=== PATIENT | female | born 1995 | race Caucasian/White ===

== ENCOUNTER 2017-08-08 08:34 | Inpatient (IN) ==
[2017-08-08] MEDS ORDERED: CARBOPROST 250 MCG/ML INJECTION IM PRN (16:20)
[2017-08-08] MEDS ORDERED: METHYLERGONOVINE 0.2 MG/ML INJECTION IM PRN (16:20)
[2017-08-08] MEDS ORDERED: ACETAMINOPHEN 500 MG TABLET PO PRN (16:20)
[2017-08-08] MEDS ORDERED: LIDOCAINE 1% (10mg/ml) 2mL INJ PF SDV ID PRN (16:20)
[2017-08-08] MEDS ORDERED: CALCIUM CARBONATE Chewable 500mg TABLET PO PRN (16:20)
[2017-08-08] MEDS ORDERED: MAG-AL + SIM ORAL LIQUID 30ml PO PRN (16:20)
[2017-08-08] MEDS ORDERED: SALINE FLUSH 10ml SYRINGE IV PRN (16:23)
[2017-08-08] MEDS ORDERED: ZOLPIDEM 5 MG TABLET PO PRN (16:23)
[2017-08-08] MEDS ORDERED: HYDROCODONE/APAP 5mg/325mg TABLET PO PRN (16:23)
--- OUTSIDE RECORDS SUMMARY | 2017-08-08 17:03 | External Medical Summary | Continuity of Care Document ---
:1995 Author Organization [facility] Address [address] [place], [place] [id number] Phone Care Team Providers Name Role Phone Vivian Bledsoe MD Unavailable Unavailable Allergies, Adverse Reactions, Alerts Substance Reaction Severity Status amoxicillin Hives Unknown Active Medications Medication Instructions Dosage Effective Dates Status Comments (start - stop) Gummy 400 - Active mcg-35 mg-25 mg-5 mg chewable tablet ProAir HFA 90 inhale 2 puff by - Active mcg/actuation aerosol inhalation route inhaler every 4 - 6 hours as needed Problems Condition Effective Dates (start - stop) Clinical Status Supervision of other high risk - pregnancies, third trimester Preg care for patient w recurrent preg - loss, third trimester 33 weeks gestation of - Supervision of other high risk - pregnancies, first trimester Preg care for patient w recurrent preg - loss, first trimester 8 weeks gestation of - Supervision of other high risk - pregnancies, first trimester 13 weeks gestation of - Supervision of other high risk - pregnancies, second trimester Maternal care for excess growth, - second tri, unsp 19 weeks gestation of - Supervision of other high risk - pregnancies, second trimester 27 weeks gestation of - Supervision of other high risk - pregnancies, second trimester 23 weeks gestation of - Supervision of other high risk - pregnancies, second trimester Preg care for patient w recur preg - loss, second trimester 19 weeks gestation of - Supervision of other high risk - pregnancies, second trimester Maternal care for excess growth, - second tri, unsp 17 weeks gestation of - Supervision of other high risk - pregnancies, third trimester 30 weeks gestation of - Supervision of other high risk - pregnancies, third trimester Preg care for patient w recurrent preg - loss, third trimester Oth related conditions, - third trimester Maternal care for excess growth, - third trimester, unsp Supervision of other high risk - pregnancies, third trimester Encounter For Screening For - Streptococcus B 35 weeks gestation of - Oth related conditions, - third trimester 32 weeks gestation of - Asthma Active Procedures Procedure Date Ultrasnd preg uterus, flwup/repeat Results Test Name Date and Time Measure Units Reference Range Abnormal Flag Comments Unknown Advance Directives Directive Yes / No Effective Date File Name Unknown Encounters Encounter Practice Location Reason(s) Diagnoses Date Provider Care Team Description For Visit Members Yandel Garza Supervision of Mercado Referring In Womens other high risk 3-201 Malissa. Provider: Health [place], pregnancies, 7 700 Malissa Mercado [address] [facility], 700 1522, [facility], For Dr, [facility] Dr DENT, Screening For 120, Joshua 120, [id number], Streptococcus B35 Greg Garza, [place] weeks gestation FILIPE DENT, tel: of [phone]. , [place]. tel: tel: [phone] Yandel Garza Supervision of Sobbing In Womens other high risk 8-201 Che[place]. Health [place], pregnancies, 7 700 [address] third Medical 1522, trimesterPreg [facility], care for patient FILIPE Shafer, w recurrent preg [id number], loss, third 120, [place] Leonardo Garza, tel: related [place], conditions, third [address], trimesterMaternal [place]. care for excess tel: growth, [phone] third trimester, unsp Associates Greg Supervision of Sep-1 [facility] In Womens Ultrasound other high risk 8-201 Malissa. Health PA, pregnancies, 7 700 PO [address] third Medical 1522, trimesterPreg [facility], care for patient Joshua Hagan, w recurrent preg 120, , loss, third [place], [email or web address] weeks [place], tel: gestation of [phone] , [place]. tel: [phone] Yandel Garza Oth Sep-1 [facility] In Womens related 1-201 Malissa. Health PA, conditions, third 7 700 PO Box weeks Medical 1522, gestation of [facility], Joshua Hagan, 120, , [place], [place], tel:[phone] , [place]. tel: [phone] Yandel Garza Supervision of May- Merc[facility] Referring In Womens other high risk 1-201 Malissa. Provider: Health PA, pregnancies, 7 700 Malisas Mercado PO Box third [email or web address] Medical K, 700 1522, weeks gestation [facility], of [place], 120, Joshua 120, , [place], [place], [place], tel: [phone]. , [place]. tel: tel: [phone] Yandel Garza Supervision of May- [place] In Womens other high risk 0-201 Malissa. Health [place], pregnancies, 7 700 PO Box second Medical 1522, [email or web address] weeks [facility], gestation of Joshua Hagan, 120, , [place], tel: [phone] , [place]. tel: [phone] Yandel Garza Supervision of Apr- [place] In Womens other high risk 3-201 Malissa. Health [place], pregnancies, 7 700 PO Box second Medical 1522, [email or web address] weeks [place], gestation of Joshua Hagan, 120, , [place], tel:+ [phone] , [place]. tel: [phone] Associates Greg Supervision of Mir-1 [facility] In Womens other high risk 2-201 Malissa. Health PA, pregnancies, 7 700 PO Box second Medical 1522, trimesterPreg [facility], care for patient Joshua Hagan, w recur preg 120, [id number], loss, second [place], [place] [email or web address] weeks [place], tel:+[phone] gestation of [phone] , [place]. tel:[phone] Yandel Garza Supervision of Mir-1 [facility] In Womens Ultrasound other high risk 2-201 Malissa. Health PA, pregnancies, 7 700 PO Box second Medical 1522, trimesterMaternal [facility], care for excess Joshua Hagan, growth, 120, [id number], second tri, [place], [place] unsp19 weeks [place], tel:[phone] gestation of [phone] , [place]. tel: [phone] Yandel Garza Supervision of May-3 [facility] In Womens other high risk 0-201 Malissa. Health PA, pregnancies, 7 700 PO Box second Medical 1522, trimesterMaternal [facility], care for excess Joshua Hagan, growth, 120, [id number], second tri, [place], [place] unsp17 weeks [place], tel:+316 gestation of [phone] , [place]. tel: [phone] Yandel Garza Supervision of May-0 [facility] In Womens other high risk 3-201 Malissa. Health PA, pregnancies, 7 700 PO Box first [email or web address] Medical 1522, weeks gestation [facility] [place], of Joshua Hagan, 120, [id number], [place], [place], tel:[phone] , [place]. tel:[phone] Yandel Garza Supervision of Mar-2 [facility] In Womens other high risk 7-201 Malissa. Health PA, pregnancies, 7 700 PO Box first Medical 1522, trimesterPreg [facility], care for patient Joshua Hagan, w recurrent preg 120, [id number], loss, first [place], [place] trimester8 weeks [place], tel:[phone] gestation of [phone] , [place]. tel: [phone] Family History Family Member Diagnosis Age At Onset No family history of Pulmonary Embolism No family history of Venous Thrombosis Maternal Grandfather Lung Disease Mother Thyroid Disorder Paternal Grandmother Breast Cancer Paternal Grandfather Diabetes Paternal Grandmother Thyroid Disorder Immunizations Vaccine Date Status Comments Influenza, injectable, completed Source: New Immunization Record quadrivalent, preservative free, 3 yrs or older Tdap completed Source: New Immunization Record Tdap completed Source: Other Provider Payers Payer name Insurance type Covered democrat ID Authorization(s) Aetna CI [id number] Aetna CI [id number] Aetna CI [id number] Social History Type Description Quantity Date Captured Unknown Vital Signs Date / Height Weight BMI Pulse Blood Temperature Respiratory Body Head BMI Time: Rate Pressure Rate Surface Circumference percentile Area Unknown Chief Complaint And Reason For Visit Unknown Chief Complaint And Reason For Visit Reason For Referral Reason For Referral Unknown Plan Of Care Date Type Action Status Appointment Sade Laguerre BOOKED Future Order: Radiology Order Ultrasound OB Follow-up ([id number]) Ordered Future Order: Radiology Order Complete OB Ultrasound > 14 Ordered Weeks ([id number]) Date Type Problem Goal Intervention Status Start Date Unknown. History Of Present Illness Encounter Date Complaint History Of Present Illness This patient has no known history of present illness Functional Status Encounter Date Functional Assessment Cognitive Assessment Unknown Medications Administered Medication Instructions Dosage Effective Dates (start - stop) Status Comments Drug Treatment Unknown Instructions Date Instruction Additional Information labor signs group B strep screening gestational glucose lab screening anticipated course of care HIV and other routine tests risk factors identified by history nutrition and weight gain counseling, special diet toxoplasmosis precautions (cats / raw meat) exercise indications for ultrasound influenza vaccine environmental / work hazards travel tobacco (ask, advise, assess, assist and arrange) alcohol illicit / recreational drugs use of any medications (including supplements, vitamins, herbs, OTC drugs) smoking counseling domestic violence seat belt use genetic testing new ob handbook Zika virus assessment & precautions 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
--- OUTSIDE RECORDS SUMMARY | 2017-08-08 17:04 | External Medical Summary | Continuity of Care Document ---
:1994 Author Organization [facility] Address [address] [place], [place] [address] Phone Care Team Providers Name Role Phone [...] Effective Dates (start - stop) Clinical Status Oth related conditions, - third trimester 32 weeks gestation of - Supervision of other [...] for excess growth, - third trimester, unsp Asthma Active Procedures Procedure Date OB Visit No Charge Urine Culture Cult, bactr, ident isolate, urine Results Test Name Date and Time Measure Units Reference Range Abnormal Flag Comments Panel Description: Bacteria identified in Urine by Culture CULTURE, URINE, 15:53:00 SEE NOTE CULTURE, URINE, ROUTINE ROUTINE MICRO NUMBER: [id number] TEST STATUS: FINAL SPECIMEN SOURCE: URINE SPECIMEN QUALITY: ADEQUATE RESULT: Three or more organisms present, each greater than 10,000 cu/mL. May represent normal florentin contamination from external genitalia. No further testing is required.REPORT COMMENT:RFASTING:UNKNOWNTest performed at [facility] [id number] [place] [address]Jiblnouf: JUAN MANUEL BARRIOS DO,MPH Advance Directives Directive Yes / No Effective Date File Name Unknown Encounters Encounter Practice Location Reason(s) Diagnoses Date Provider Care Team Description For Visit Members Yandel Garza Supervision of Sobbing In Womens other high risk 8-201 [facility], pregnancies, 7 700 [address] third Medical 1522, trimesterPreg [facility], care for patient Soni, FILIPE, w recurrent preg [id number], loss, third 120, [place] trimesterOth [place], tel:[phone] related [place], [id number] conditions, third [address], trimesterMaternal [place]. care for excess tel: growth, [id number] third trimester, unsp Yandel Garza Supervision of Sep-1 [facility] In Womens Ultrasound other high risk 8-201 Malissa. Health PA, pregnancies, 7 700 PO Box third Medical 1522, trimesterPreg [facility], care for patient Joshua Hagan, w recurrent preg 120, [id number], loss, third Garza, [email or web address] weeks [place], tel:+[phone] gestation of , [place]. tel: [phone] Yandel Garza Oth Sep-1 [facility] In Womens related 1-201 Malissa. Health PA, conditions, third 7 700 PO Box [email or web address] weeks Medical 1522, gestation of [facility], Joshua Hagan, 120, , [place], [place], tel:[phone] , [place]. tel: [phone] Yandel Garza Supervision of May- Mecrado Referring In Womens other high risk 1-201 Malissa. Provider: Health PA, pregnancies, 7 700 Malissa Mercado PO Box third [email or web address] Medical K, 700 1522, weeks gestation Center [facility], of [place], 120, Joshua 120, , [place], [place], [place], tel:+ [phone]. , [place]. tel:+ tel: [phone] Yandel Garza Supervision of Aug- [facility] In Womens other high risk 0-201 Malissa. Health PA, pregnancies, 7 700 PO Box second Medical 1522, [email or web address] weeks [facility], gestation of Joshua Hagan, 120, , [place], [place], tel:[phone] , [place]. tel: [phone] Yandel Garza Supervision of Apr- [facility] In Womens other high risk 3-201 Malissa. Health PA, pregnancies, 7 700 PO Box second Medical 1522, [email or web address] weeks [facility], gestation of Joshua Hagan, 120, , [place], [place], tel:[phone] , [place]. tel: [phone] Yandel Garza Supervision of Mir-1 [facility] In Womens other high risk 2-201 Malissa. Health PA, pregnancies, 7 700 PO Box second Medical 1522, trimesterPreg [facility], care for patient Joshua Hagan, w recur preg 120, [id number], loss, second [place], [place] [email or web address] weeks [place], tel:+[phone] gestation of [phone] , [place]. tel: [phone] Yandel Garza Supervision of Mir-1 [facility] In Womens Ultrasound other high risk 2-201 Malissa. Health PA, pregnancies, 7 700 PO Box second Medical 1522, trimesterMaternal [facility], care for excess Joshua Hagan, growth, 120, [id number], second tri, [place], [place] unsp19 weeks [place], tel:[phone] gestation of [phone] , [place]. tel: [phone] Yandel Garza Supervision of May-3 [facility] In Womens other high risk 0-201 Malissa. Health PA, pregnancies, 7 700 PO Box second Medical 1522, trimesterMaternal [facility], care for excess Joshua Hagan, growth, 120, [id number], second tri, [place], [place] unsp17 weeks [place], tel:+-[phone] gestation of [id number] , [place]. tel: [phone] Yandel Garza Supervision of May-0 [facility] In Womens other high risk 3-201 Malissa. Health PA, pregnancies, 7 700 PO Box first [email or web address] Medical 1522, weeks gestation [facility], of Joshua Hagan, 120, [id number], [place], [place], tel:[phone] , [place]. tel: [phone] Yandel Garza Supervision of Mar-2 [facility] In Womens other high risk 7-201 Malissa. Health PA, pregnancies, 7 700 PO Box first Medical 1522, trimesterPreg [facility], care for patient Joshua Hagan, w recurrent preg 120, [id number], loss, first [place], [place] trimester8 weeks [place], tel:[phone] gestation of [phone] , [place]. tel: [phone] Family History Family Member Diagnosis Age At Onset No family history of Pulmonary Embolism No family history of Venous Thrombosis Maternal Grandfather Lung Disease Mother Thyroid Disorder Paternal Grandmother Breast Cancer Paternal Grandfather Diabetes Paternal Grandmother Thyroid Disorder Immunizations Vaccine Date Status Comments Tdap completed Source: New Immunization Record Tdap completed Source: Other Provider Payers Payer name Insurance type Covered green party ID Authorization(s) Aetna CI [id number] Aetna CI [id number] Social History Type Description Quantity Date Captured Alcohol Use Details No Caffeine Use Details Unknown Tobacco Use Status Unknown Smoking Status Never smoker Vital Signs Date / Height Weight BMI Pulse Blood Temperature Respiratory Body Head BMI Time: Rate Pressure Rate Surface Circumference percentile Area 232.20 39.8 lbs 5 mm[Hg] 3:38 kg/m PM eter (2) Chief Complaint And Reason For Visit Unknown Chief Complaint And Reason For Visit Reason For Referral Reason For Referral Unknown Plan Of Care Date Type Action Status Appointment Sade Laguerre BOOKED Future Order: Radiology Order Complete OB Ultrasound > 14 Ordered Weeks ([id number]) Future Order: Radiology Order Ultrasound OB Follow-up ([id number]) Ordered Date Type Problem Goal Intervention Status Start Date Unknown. History Of Present Illness Encounter Date Complaint History Of Present Illness This patient has no known history of present illness Functional Status Encounter Date Functional Assessment Cognitive Assessment Unknown Medications Administered Medication Instructions Dosage Effective Dates (start - stop) Status Comments Drug Treatment Unknown Instructions Date Instruction Additional Information gestational glucose lab screening anticipated course of [...]
--- OUTSIDE RECORDS SUMMARY | 2017-08-08 17:04 | External Medical Summary | Continuity of Care Document ---
:1994 Author Organization [facility] Address [address] [place], [place] [address] Phone Care Team Providers Name Role Phone Vivian Bldesoe MD Unavailable Unavailable Allergies, Adverse Reactions, Alerts [...] other high risk - pregnancies, third trimester 36 weeks gestation of - Supervision of other [...] other high risk - pregnancies, third trimester 38 weeks gestation of - Supervision of other [...] other high risk - pregnancies, third trimester 37 weeks gestation of - Supervision of other high risk - pregnancies, third trimester Preg care for patient w recurrent preg - loss, third trimester 39 weeks gestation of - Supervision of other high risk - pregnancies, third trimester Encounter For Screening For - Streptococcus B 35 weeks gestation of - Oth related conditions, - third trimester 32 weeks gestation of - Asthma Active Procedures Procedure Date OB Visit No Charge Results Test Name Date and Time Measure Units Reference Range Abnormal Flag Comments Unknown Advance Directives Directive Yes / No Effective Date File Name Unknown Encounters Encounter Practice Location Reason(s) Diagnoses Date Provider Care Team Description For Visit Members Yandel Garza Supervision of [facility] In Womens other high risk 0-201 [facility], pregnancies, 7 700 [address] third Medical 1522, trimesterPreg [facility], care for patient Joshua Hagan, w recurrent preg 120, [id number], loss, third [place], [place] [email or web address] weeks [place], tel:[phone] gestation of [phone] , [place]. tel: [phone] Yandel Garza Supervision of Oct-2 [facility] In Womens other high risk 4-201 Malissa. Health PA, pregnancies, 7 700 PO Box third Medical 1522, weeks gestation [facility], of Joshua Hagan, 120, [id number], [place], [place], tel:+ [phone] , [place]. tel: [phone] Yandel Garza Supervision of Oct-1 [facility] In Womens other high risk 7-201 Malissa. Health PA, pregnancies, 7 700 PO Box third [email or web address] Medical 1522, weeks gestation [facility], of Joshua Hagan, 120, [id number], [place], [place], tel: [phone] , [place]. tel: [phone] Yandel Garza Supervision of Oct-1 [facility] In Womens other high risk 0-201 Malissa. Health PA, pregnancies, 7 700 PO Box third [email or web address] Medical 1522, weeks gestation [facility], of Joshua Hagan, 120, [id number], [place], [place], tel:[phone] , [place]. tel: [phone] Yandel Garza Supervision of Oct-0 [facility] Referring In Womens other high risk 3-201 Malissa. Provider: Health PA, pregnancies, 7 700 Malissa Mercado PO Box third Medical K, 700 1522, trimesterEncounte [facility], r For Dr [facility] Dr DENT, Screening For 120, Joshua 120, [id number], Streptococcus B35 Greg Garza, [place] weeks gestation FILIPE DENT, tel: of [phone]. , [place]. tel: tel: [phone] Yandel Garza Supervision of Sep-1 [place] In Womens other high risk 8-201 Che[place]. Health PA, pregnancies, 7 700 PO Box third Medical 1522, trimesterPreg [facility], care for patient Drive, FILIPE, w recurrent preg [id number], loss, third 120, [place] trimesterOth [place], tel: related [place], conditions, third [address]87, trimesterMaternal [place]. care for excess tel: growth, [phone] third trimester, unsp Associates Greg Supervision of Sep- [facility] In Womens Ultrasound other high risk 8-201 Malissa. Health PA, pregnancies, 7 700 PO Box third Medical 1522, trimesterPreg [facility], care for patient Joshua Hagan, w recurrent preg 120, [id number], loss, third [place], [place] [email or web address] weeks [place], tel: gestation of [phone] , [place]. tel: [phone] Yandel Garza Oth Sep-1 [facility] In Womens related 1-201 Malissa. Health LESIA, conditions, third 7 700 [address] Box [email or web address] weeks Medical 1522, gestation of [facility], Joshua Hagan, 120, , [place], [place], tel: [phone] , [place]. tel: [phone] Yandel Garza Supervision of May- [facility] Referring In Womens other high risk 1-201 Amlissa. Provider: Health PA, pregnancies, 7 700 Malissa Mercado PO Box third [email or web address] Medical K, 700 1522, weeks gestation [facility], of [place], 120, Joshua 120, , [place] Garza, [place], [place], tel:[phone]. , [place]. tel: tel: [phone] Yandel Garza Supervision of May- [facility] In Womens other high risk 0-201 Malissa. Health [facility], pregnancies, 7 700 PO Box second Medical 1522, [email or web address] weeks [facility], gestation of Joshua Hagan, 120, [id number], [place], [place], tel: [phone] , [place]. tel: [phone] Yandel Garza Supervision of Apr- [facility] In Womens other high risk 3-201 Malissa. Health [facility]ESIA, pregnancies, 7 700 PO Box second Medical 1522, [email or web address] weeks [facility], gestation of Joshua Hagan, 120, [id number], [place], [place], tel: [phone] , [place]. tel: [phone] Yandel Garza Supervision of Mir-1 [facility] In Womens other high risk 2-201 Malissa. Health PA, pregnancies, 7 700 PO Box second Medical 1522, trimesterPreg [facility], care for patient Joshua Hagan, w recur preg 120, [id number], loss, second [place], [place] [email or web address] weeks [place], tel:+[phone] gestation of [phone] , [place]. tel: [phone] Yandel Garza Supervision of Mir-1 [facility] In Womens Ultrasound other high risk 2-201 Malissa. Health PA, pregnancies, 7 700 PO Box second Medical 1522, trimesterMaternal [facility], care for excess Joshua Hagan, growth, 120, [id number], second tri, [place], [place] unsp19 weeks [place], tel:+[phone] gestation of [phone] , [place]. tel: [phone] Yandel Garza Supervision of May-3 [facility] In Womens other high risk 0-201 Malissa. Health PA, pregnancies, 7 700 PO Box second Medical 1522, trimesterMaternal [facility], care for excess Joshua Hagan, growth, 120, [id number], second triGreg, [place] unsp17 weeks [place], tel:+3162 gestation of [phone] , [place]. tel: [phone] Yandel Garza Supervision of May-0 [facility] In Womens other high risk 3-201 Malissa. Health PA, pregnancies, 7 700 PO Box first [email or web address] Medical 1522, weeks gestation [facility], of Joshua Hagan, 120, [id number], [place], [place], tel:[phone] , [place]. tel: [phone] Yandel Garza Supervision of Mar-2 [facility] In Womens other high risk 7-201 Malissa. Health PA, pregnancies, 7 700 PO Box first Medical 1522, trimesterPreg [facility], care for patient Joshua Hagan, w recurrent preg 120, [id number], loss, first [place], [place] trimester8 weeks [place], tel:+[phone] gestation of [phone] [phone] , [place]. tel:[phone] Family History Family Member Diagnosis Age At [...] Provider Payers Payer name Insurance type Covered libertarian ID Authorization(s) Aetna CI [id number] [facility] - [id number] Medicaid Aetna CI [id number] Aetna CI [id number] Social History Type Description Quantity Date Captured Alcohol Use Details No Caffeine Use Details Unknown Tobacco Use Status Unknown Smoking Status Never smoker Vital Signs Date / Height Weight BMI Pulse Blood Temperature Respiratory Body Head BMI Time: Rate Pressure Rate Surface Circumference percentile Area 40.5 -2017 2 3:45 kg/m PM eter (2) 236.00 40.5 138/56 -2017 lbs 1 mm[Hg] 3:56 kg/m PM eter (2) Chief Complaint And Reason For Visit Unknown Chief Complaint And Reason For Visit Reason For Referral Reason For Referral Unknown Plan Of Care Date Type Action Status Appointment Sade Laguerre BOOKED Future Order: Radiology Order Complete OB Ultrasound > 14 Ordered Weeks ([id number]) Future Order: Radiology Order Ultrasound OB Follow-up ([id number]) Ordered Date Type Problem Goal Intervention Status [...]
--- OUTSIDE RECORDS SUMMARY | 2017-08-08 17:04 | External Medical Summary | Continuity of Care Document ---
:1994 Author Organization [facility] Address [address] [place], [place] [phone] Phone Care Team Providers Name Role Phone [...] other high risk - pregnancies, second trimester 17 weeks gestation of - Maternal care for excess growth, - second tri, unsp Preg care for patient w recur preg - loss, second trimester Supervision of other high risk - pregnancies, second trimester 19 weeks gestation of - Asthma Active Procedures Procedure Date Unknown Results Test Name Date and Time Measure Units Reference Range Abnormal Flag Comments Unknown Advance Directives Directive Yes / No Effective Date File Name Unknown Encounters Encounter Practice Location Reason(s) Diagnoses Date Provider Care Team Description For Visit Members Yandel Garza May- Mercado Referring In Womens 1-201 Malissa. Provider: Kyler GRAF, 7 700 Malissa Mercado PO Box Medical K, [address], [place] [address], [facility] [place], 120, Joshua 120, , [place], [place], [place], tel:[phone]. , [place]. tel: tel: [phone] Yandel Garza May- Mercado In Womens 4-201 Malissa. Kyler GRAF, 7 700 [address], [address], Joshua DENT, 120, , [facility] [place], tel:[phone] , [place]. tel: [phone] Yandel Garza Supervision of May- Mercado In Womens other high risk 0-201 Malissa. Health [place], pregnancies, 7 700 PO Box second Medical 1522, weeks [place], gestation of Joshua Hagan, 120, , [facility] [place], tel:[phone] , [place]. tel: [phone] Yandel Garza Supervision of Apr- Mercado In Womens other high risk 3-201 Malissa. Health [place], pregnancies, 7 700 PO Box second Medical 1522, [email or web address] weeks [place], gestation of Joshua Hagan, 120, , [facility] [place], tel:[phone] , [place]. tel: [phone] Yandel Garza Preg care for Mar- Mercado In Womens patient w recur 2-201 Malissa. Kyler GRAF, preg loss, second 7 700 PO Box trimesterSupervis Medical 1522, ion of other high [facility] [place], risk pregnancies, Joshua Hagan, second 120, [id number], [email or web address] weeks [place], [place] gestation of [place], tel:[phone] , [place]. tel:[phone] Yandel Garza Supervision of Mir-1 Mercado In Womens Ultrasound other high risk 2-201 Malissa. Health [place], pregnancies, 7 700 PO Box second Medical 1522, trimesterMaternal [facility], care for excess Joshua Hagan, growth, 120, [id number], second tri, [place], [place] unsp19 weeks [place], tel:[phone] gestation of [phone] , [place]. tel:[phone] Yandel Garza Supervision of May-3 Mercado In Womens other high risk 0-201 Malissa. Health [place], pregnancies, 7 700 PO Box second Medical 1522, [email or web address] weeks [facility], gestation of Joshua Hagan, pregnancyMaternal 120, [id number], care for excess [place], [place] growth, [place], tel:+[phone] second tri, unsp [phone] , [place]. tel:[phone] Yandel Garza Supervision of May-0 Mercado In Womens other high risk 3-201 Malissa. Health [place], pregnancies, 7 700 PO Box first [email or web address] Medical 1522, weeks gestation [facility], of Joshua Hagan, 120, [id number], [place], [place], tel:[phone] , [place]. tel:[phone] Yandel Garza Supervision of Mar-2 Mercado In Womens other high risk 7-201 Malissa. Health [place], pregnancies, 7 700 PO Box first Medical 1522, trimesterPreg [facility], care for patient Joshua Hagan, w recurrent preg 120, [id number], loss, first [place], [place] trimester8 weeks [place], tel:[phone] gestation of [phone] , [place]. tel:[phone] Family History Family Member Diagnosis Age At Onset No family history of Pulmonary Embolism No family history of Venous Thrombosis Maternal Grandfather Lung Disease Mother Thyroid Disorder Paternal Grandmother Breast Cancer Paternal Grandfather Diabetes Paternal Grandmother Thyroid Disorder Immunizations Vaccine Date Status Comments Tdap completed Source: New Immunization Record Tdap completed Source: Other Provider Payers Payer name Insurance type Covered republican ID Authorization(s) Aetna CI [id number] Aetna CI [id number] Social History Type Description Quantity Date Captured Unknown Vital Signs Date / Height Weight BMI Pulse Blood Temperature Respiratory Body Head BMI Time: Rate Pressure Rate Surface Circumference percentile Area Unknown Chief Complaint And Reason For Visit Unknown Chief Complaint And Reason For Visit Reason For Referral Reason For Referral Unknown Plan Of Care Date Type Action Status Appointment Sade Laguerre BOOKED Appointment Sade Laguerre BOOKED Future Order: Radiology Order Complete OB Ultrasound > 14 Ordered Weeks ([id number]) Date Type Problem Goal Intervention Status Start [...]
--- OUTSIDE RECORDS SUMMARY | 2017-08-08 17:04 | External Medical Summary | Continuity of Care Document ---
:1994 Author Organization [facility] Address [address] [place], [place] [phone] Phone Care Team Providers Name Role Phone [...] other high risk 3-201 Malissa. Provider: Health [place], pregnancies, 7 700 Malissa Mercado PO Box [facility] Medical K, 700 1522, [facility], For Dr, Joshua Center Dr DENT, Screening For 120, Joshua 120, [id number], Streptococcus B35 Greg Garza, [place] weeks gestation [place] DENT, tel: of [phone]. , [place]. tel: tel: [phone] Yandel Garza Supervision of [place] In Womens other high risk 8-201 Chepe. Health [place], pregnancies, 7 700 PO Box third Medical 1522, [facility] patient [place] Shafer, w recurrent preg [id number], loss, third 120, [place] trimesterOth Greg, tel: related [place], conditions, third [address], trimesterMaternal [place]. care for excess tel:[phone] growth, [phone] third trimester, unsp Associates Greg Supervision of Sep- Mercado In Womens Ultrasound other high risk 8-201 Malissa. Health [place], pregnancies, 7 700 PO Box third Medical 1522, trimesterPreg [facility], care for patient Joshua Hagan, w recurrent preg 120, [id number], loss, third [place], [place] [email or web address] weeks [place], tel:+ gestation of [phone] , [place]. tel: [phone] Yandel Garza Oth Sep-1 Mercado In Womens related 1-201 Malissa. Health [place], conditions, third 7 700 PO Box [email or web address] weeks Medical 1522, gestation of [facility], Joshua Hagan, 120, , [place], [place], tel:[phone] , [place]. tel: [phone] Yandel Garza Supervision of Mercado Referring In Womens other high risk 1-201 Malissa. Provider: Health [place], pregnancies, 7 700 Malissa Mercado PO Box third [email or web address] Medical K, 700 1522, weeks gestation [facility], of Joshua H[address] DENT, 120, Joshua 120, , Greg Garza, [place], [place], tel:+ [phone]. , [place]. tel: tel: [phone] Yandel Garza Supervision of May- Mercado In Womens other high risk 0-201 Malissa. Health [place], pregnancies, 7 700 PO Box second Medical 1522, [email or web address] weeks [facility], gestation of Joshua Hagan, 120, , [place], [place], tel: [phone] , [place]. tel: [phone] Yandel Garza Supervision of Apr- Mercado In Womens other high risk 3-201 Malissa. Health [place], pregnancies, 7 700 PO Box second Medical 1522, [email or web address] weeks [facility], gestation of Joshua Hagan, 120, , [place], [place], tel:[phone] , [place]. tel:[phone] Yandel Garza Supervision of Mir-1 Mercado In Womens other high risk 2-201 Malissa. Health [place], pregnancies, 7 700 PO Box second Medical 1522, trimesterPreg [facility], care for patient Joshua Hagan, w recur preg 120, [id number], loss, second [place], [place] [email or web address] weeks [place], tel:[phone] gestation of [phone] , [place]. tel: [phone] Yandel Garza Supervision of Mir-1 Mercado In Womens Ultrasound other high risk 2-201 Malissa. Health [place], pregnancies, 7 700 PO Box second Medical 1522, trimesterMaternal [facility], care for excess Joshua Hagan, growth, 120, [id number], second tri, [place], [place] unsp19 weeks [place], tel:+ gestation of [phone] , [place]. tel: [phone] Yandel Garza Supervision of May-3 Mercado In Womens other high risk 0-201 Malissa. Health [place], pregnancies, 7 700 PO Box second Medical 1522, trimesterMaternal [facility], care for excess Joshua Hagan, growth, 120, [id number], second tri, [place], [place] unsp17 weeks [place], tel:+ gestation of [phone] , [place]. tel: [phone] Yandel Garza Supervision of May-0 Mercado In Womens other high risk 3-201 Malissa. Health [place], pregnancies, 7 700 PO Box first [email or web address] Medical 1522, weeks gestation [facility], of Joshua Hagan, 120, [id number], [place], [place], tel:+ [phone] , [place]. tel: [phone] Yandel Garza Supervision of Mar-2 Mercado In Womens other high risk 7-201 Malissa. Health [place], pregnancies, 7 700 PO Box first Medical 1522, trimesterPreg [facility], care for patient Joshua Hagan, w recurrent preg 120, [id number], loss, first [place], [place] trimester8 weeks [place], tel:[phone] gestation of [phone] , [place]. tel: [phone] Family History Family Member Diagnosis Age At [...] Provider Payers Payer name Insurance type Covered constitution party ID Authorization(s) Aetna CI [id number] Aetna CI [id number] Aetna CI [id number] Social History Type Description Quantity Date Captured Alcohol Use Details No Caffeine Use Details Unknown Tobacco Use Status Unknown Smoking Status Never smoker Vital Signs Date / Height Weight BMI Pulse Blood Temperature Respiratory Body Head BMI Time: Rate Pressure Rate Surface Circumference percentile Area 234.80 40.3 118/ lbs 0 mm[Hg] 3:32 kg/m PM eter (2) Chief Complaint And Reason For Visit Unknown Chief Complaint And Reason For Visit Reason For Referral Reason For Referral Unknown Plan Of Care Date Type Action Status Appointment Sade Laguerre BOOKED Future Order: Radiology Order Complete OB Ultrasound > 14 Ordered Weeks ([id number]) Future Order: Radiology Order Ultrasound OB Follow-up ([id number]) Ordered Date Type Problem Goal Intervention Status [...]
--- OUTSIDE RECORDS SUMMARY | 2017-08-08 17:04 | External Medical Summary | Continuity of Care Document ---
:1994 Author Organization [facility] Address [address] [place], [place] [phone] Phone Care Team Providers Name Role Phone [...] other high risk - pregnancies, first trimester 8 weeks gestation of - Preg care for patient w recurrent preg - loss, first trimester Supervision of other high risk - [...] second trimester 19 weeks gestation of - Preg care for patient w recur preg - loss, second trimester Maternal care for excess growth, - second tri, unsp Supervision of other high risk - pregnancies, second trimester 17 weeks gestation of - Asthma Active Procedures Procedure Date OB Visit No Charge Hemoglobin count, colorimetric Hematocrit blood count Glucose test Venpnctr fngr/heel/ear stick routne Results Test Name Date and Time Measure Units Reference Range Abnormal Flag Comments Panel Description: Glucose [Mass/volume] in Serum or Plasma --1 hour post 50 g glucose PO GLUCOSE, 106 mg/dL <140 N Test performed at [facility] GESTATIONAL SCREEN 11:37:00 DIAGNOSTICS [id number] (50G)-[address] [place] [address]Ubzkktvk: JUAN MANUEL BARRIOS DO,MPH Panel Description: HEMOGLOBIN + HEMATOCRIT HEMOGLOBIN 11:37:00 10.9 g/dL 11.7-15.5 L HEMATOCRIT 11:37:00 33.0 % 35.0-45.0 L Test performed at [facility] [id number] [place] [address]Yznapzcg: JUAN MANUEL BARRIOS DO,MPH Advance Directives Directive Yes / No Effective Date File Name Unknown Encounters Encounter Practice Location Reason(s) Diagnoses Date Provider Care Team Description For Visit Members Yandel Garza Mercado Referring In Womens 1-201 Malissa. Provider: Health [place], 7 700 Malissa Mercado PO Box Medical K, 700 1522, [place] [address], [facility] [place], 120, Joshua 120, , [place] [facility] [place], tel: [phone]. , [place]. tel: tel: [phone] Yandel Garza Supervision of Mercado In Womens other high risk 0-201 Malissa. Health [place], pregnancies, 7 700 PO Box second Medical 1522, [email or web address] weeks [place], gestation of Joshua Hagan, 120, , Greg [place], tel: [phone] , [place]. tel: [phone] Yandel Garza Supervision of J Carlos-1 Mercado In Womens other high risk 3-201 Malissa. Health [place], pregnancies, 7 700 PO Box second Medical 1522, [email or web address] weeks [facility], gestation of Joshua Hagan, 120, [id number], [place], [place], tel:[phone] , [place]. tel: [phone] Yandel Garza Supervision of Mir-1 Mercado In Womens other high risk 2-201 Malissa. Health [place], pregnancies, 7 700 PO Box second Medical 1522, [email or web address] weeks [facility], gestation of Joshua Hagan, pregnancyPreg 120, [id number], care for patient [place], [place] w recur preg [place], tel:+[phone] loss, second [phone] trimester , [place]. tel: [phone] Yandel Garza Supervision of Mir-1 Mercado In Womens Ultrasound other high risk 2-201 Malissa. Health [place], pregnancies, 7 700 PO Box second Medical 1522, trimesterMaternal [facility], care for excess Joshua Hagan, growth, 120, [id number], second tri, [place], unsp19 weeks [place], tel:+316 gestation of [phone] , [place]. tel: [phone] Yandel Garza Maternal care for May-3 Mercado In Womens excess 0-201 Malissa. Health [place], growth, second 7 700 PO Box tri, Medical 1522, unspSupervision [facility], of other high Joshua Hagan, risk pregnancies, 120, [id number], second [place], [email or web address] weeks [place], tel:+[phone] gestation of [phone] , [place]. tel: [phone] Yandel Garza Supervision of May-0 Mercado In Womens other high risk 3-201 Malissa. Health [place], pregnancies, 7 700 PO Box first [email or web address] Medical 1522, weeks gestation [facility], of Joshua Hagan, 120, [id number], [place], [place], tel:[phone] , [place]. tel:[phone] Yandel Garza Supervision of Mar-2 Mercado In Womens other high risk 7-201 [facility], pregnancies, 7 700 PO Box first trimester8 Medical 1522, [facility] pregnancyPreg , Joshua DENT, care for patient 120, [id number], w recurrent preg [place], [place] loss, first [place], tel: trimester [phone] , [place]. tel: [phone] Family History Family Member Diagnosis Age At Onset No family history of Pulmonary Embolism No family history of Venous Thrombosis Maternal Grandfather Lung Disease Mother Thyroid Disorder Paternal Grandmother Breast Cancer Paternal Grandfather Diabetes Paternal Grandmother Thyroid Disorder Immunizations Vaccine Date Status Comments Tdap completed Source: Other Provider Tdap ordered Source: New Immunization Record Payers Payer name Insurance type Covered democrat ID Authorization(s) Aetna CI [id number] Aetna CI [id number] Social History Type Description Quantity Date Captured Alcohol Use Details No Caffeine Use Details Unknown Tobacco Use Status Unknown Smoking Status Never smoker Vital Signs Date / Height Weight BMI Pulse Blood Temperature Respiratory Body Head BMI Time: Rate Pressure Rate Surface Circumference percentile Area 226.50 38.8 lbs 7 mm[Hg] 10:39 kg/m AM eter (2) 38.3 8 mm[Hg] 10:35 kg/m AM eter (2) 38.3 -2016 8 10:33 kg/m AM eter (2) Chief Complaint And Reason For Visit Unknown Chief Complaint And Reason For Visit Reason For Referral Reason For Referral Unknown Plan Of Care Date Type Action Status Appointment Sade Laguerre BOOKED Appointment Sade Laguerre BOOKED Unknown Immunization Tdap ordered Future Order: Radiology Order Complete OB Ultrasound > 14 Ordered Weeks ([id number]) Date Type Problem Goal Intervention Status Start [...]
--- OUTSIDE RECORDS SUMMARY | 2017-08-08 17:04 | External Medical Summary | Continuity of Care Document ---
:1994 Author Organization [facility] Address [address] [place], [place] [phone] Phone Care Team Providers Name Role Phone [...] tri, unsp 17 weeks gestation of - Asthma Active Procedures Procedure Date OB Visit No Charge Results Test Name Date and Time Measure Units Reference Range Abnormal Flag Comments Unknown Advance Directives Directive Yes / No Effective Date File Name Unknown Encounters Encounter Practice Location Reason(s) Diagnoses Date Provider Care Description For Visit Team Members Yandel Garza Supervision of Mercado In Womens other high risk 3-201 Malissa. Health [place], pregnancies, 7 700 PO Box second [email or web address] Medical 1522, weeks gestation of [facility], Joshua Hagan, 120, [id number], [place], [place], tel:[phone] , [place]. tel:[phone] Yandel Garza Supervision of Mar- Mercado In Womens other high risk 2-201 Malissa. Health [place], pregnancies, 7 700 PO Box second Medical 1522, trimesterPreg care [facility], for patient w Joshua Hagan, recur preg loss, 120, [id number], second [email or web address] [place], [place] weeks gestation of [place], tel:[phone] , [place]. tel:[phone] Yandel Garza Supervision of Mercado In Womens Ultrasound other high risk 2-201 Malissa. Health [place], pregnancies, 7 700 PO Box second Medical 1522, trimesterMaternal [facility], care for excess Joshua Hagan, growth, 120, [id number], second tri, unsp19 [place], [place] weeks gestation of [place], tel:[phone] , [place]. tel: [phone] Yandel Garza Supervision of January-3 Mercado In Womens other high risk 0-201 Malissa. Health [place], pregnancies, 7 700 PO Box second Medical 1522, trimesterMaternal [facility], care for excess Joshua Hagan, growth, 120, [id number], second tri, unsp17 [place], [place] weeks gestation of [place], tel:[phone] , [place]. tel:[phone] Yandel Garza Supervision of January-0 Mercado In Womens other high risk 3-201 Malissa. Health [place], pregnancies, first 7 700 PO Box [email or web address] weeks Medical 1522, gestation of [facility], Joshua Hagan, 120, [id number], [place], [place], tel: [phone] , [place]. tel: [phone] Associates Greg Supervision of Mercado In Womens other high risk 7-201 Malissa. [facility], pregnancies, first 7 700 PO Box [facility], for patient w [facility], recurrent preg Joshua Hagan, loss, first 120, [id number], trimester8 weeks [place], gestation of [place], tel:+ [phone] 1967[address] , [place]. tel: [phone] Family History Family Member Diagnosis Age At Onset No family history of Pulmonary Embolism No family history of Venous Thrombosis Maternal Grandfather Lung Disease Mother Thyroid Disorder Paternal Grandmother Breast Cancer Paternal Grandfather Diabetes Paternal Grandmother Thyroid Disorder Immunizations Vaccine Date Status Comments Tdap completed Source: Other Provider Payers Payer name Insurance type Covered green party ID Authorization(s) [facility] [id number] Social History Type Description Quantity Date Captured Alcohol Use Details No Caffeine Use Details Unknown Tobacco Use Status Unknown Smoking Status Never smoker Vital Signs Date / Height Weight BMI Pulse Blood Temperature Respiratory Body Head BMI Time: Rate Pressure Rate Surface Circumference percentile Area 37.6 -2016 9 11:25 kg/m AM eter (2) 223.60 38.3 124/77 -2017 lbs 8 mm[Hg] 11:29 kg/m AM eter (2) Chief Complaint And Reason For Visit Unknown Chief Complaint And Reason For Visit Reason For Referral Reason For Referral Unknown Plan Of Care Date Type Action Status Appointment Sade Laguerre BOOKED Future Order: Radiology Order Complete OB Ultrasound > 14 Ordered Weeks ([id number]) Date Type Problem Goal Intervention Status Start Date Unknown. History Of Present Illness Encounter Date Complaint History Of Present Illness This patient has no known history of present illness Functional Status Encounter Date Functional Assessment Cognitive Assessment Unknown Medications Administered Medication Instructions Dosage Effective Dates (start - stop) Status Comments Drug Treatment Unknown Instructions Date Instruction Additional Information anticipated course of care HIV and other [...]
--- OUTSIDE RECORDS SUMMARY | 2017-08-08 17:04 | External Medical Summary | Continuity of Care Document ---
:1995 Author Organization [email or web address] Address [address] [place], [place] [phone] Phone Care Team Providers Name Role Phone [...] for excess growth, - third trimester, unsp Oth related conditions, - third trimester 32 weeks gestation of - Asthma Active Procedures Procedure Date Immuniz admnin, 1 vac, sngl/combo 19 Yrs + TDAP VACCINE >7 IM OB Visit No Charge Results Test Name Date and Time Measure Units Reference Range Abnormal Flag Comments Unknown Advance Directives Directive Yes / No Effective Date File Name Unknown Encounters Encounter Practice Location Reason(s) Diagnoses Date Provider Care Team Description For Visit Members Yandel Garza Supervision of Sep-1 [facility] In Womens other high risk 8-201 [facility], pregnancies, 7 700 [address] third Medical 1522, trimesterPreg [facility], care for patient FILIPE Shafer, w recurrent preg [id number], loss, third 120, [place] trimesterOth [place], tel:[phone] related [place], conditions, third [address], trimesterMaternal [place]. care for excess tel: growth, [phone] third trimester, unsp Yandel Gazra Supervision of Sep-1 [facility] In Womens Ultrasound other high risk 8-201 Malissa. [facility], pregnancies, 7 700 [address] third Medical 1522, trimesterPreg [facility], care for patient [place] H[place], w recurrent preg 120, [id number], loss, third [place], [place] [email or web address] weeks [place], tel:[phone] gestation of [phone] , [place]. tel: [phone] Yandel Garza Oth Sep-1 [facility] In Womens related 1-201 Malissa. Health LESIA, conditions, third 7 700 [address] [email or web address] weeks Medical 1522, gestation of [facility], Joshua Hagan, 120, [id number], [place], [place], tel:+ [phone] , [place]. tel: [phone] Yandel Garza Supervision of Aug-3 [facility] Referring In Womens other high risk 1-201 Malissa. Provider: Health LESIA, pregnancies, 7 700 Malissa Mercado PO Box third [email or web address] Medical K, 700 1522, weeks gestation [facility], of , [facility] [address] DENT, 120, Joshua 120, , [place], [place], [place], tel:[phone]. , [place]. tel: tel: [phone] Yandel Garza Supervision of Aug-1 [facility] In Womens other high risk 0-201 Malissa. [facility] LESIA, pregnancies, 7 700 PO Box second Medical 1522, [email or web address] weeks [facility], gestation of Joshua Hagan, 120, [id number], [place], [place], tel: [phone] , [place]. tel: [phone] Yandel Garza Supervision of J Carlos-1 [facility] In Womens other high risk 3-201 Malissa. Kyler GRAF, pregnancies, 7 700 PO Box second Medical 1522, [email or web address] weeks [facility], gestation of Joshua Hagan, 120, , [place], [place], tel: [phone] , [place]. tel: [phone] Yandel Garza Preg care for Mir-1 [facility] In Womens patient w recur 2-201 Malissa. Health LESIA, preg loss, second 7 700 PO Box trimesterSupervis Medical 1522, ion of other high [facility], risk pregnancies, Joshua Hagan, second 120, [id number], weeks [place], gestation of [place], tel:[phone] , [place]. tel: [phone] Yandel Garza Supervision of Mir-1 [facility] In Womens Ultrasound other high risk 2-201 Malissa. [facility] [place], pregnancies, 7 700 PO Box second Medical 1522, trimesterMaternal [facility], care for excess Joshua Hagan, growth, 120, [id number], second tri, [place], [place] unsp19 weeks [place], tel:[phone] gestation of [phone] , [place]. tel: [phone] Yandel Garza Supervision of January-3 [facility] In Womens other high risk 0-201 Malissa. [facility] [place], pregnancies, 7 700 PO Box second Medical 1522, [email or web address] weeks [facility], gestation of Joshua Hagan, pregnancyMaternal 120, [id number], care for excess [place], [place] growth, [place], tel:[phone] second tri, unsp [phone] , [place]. tel: [phone] Yandel Garza Supervision of January-0 [facility] In Womens other high risk 3-201 Malissa. [facility], pregnancies, 7 700 PO Box first [email or web address] Medical 1522, weeks gestation [facility], of Joshua Hagan, 120, [id number], [place], tel:[phone] , [place]. tel: [phone] Yandel Garza Supervision of Nov-2 [facility] In Womens other high risk 7-201 Malissa. [facility] [place], pregnancies, 7 700 PO Box first Medical 1522, trimesterPreg [facility], care for patient Joshua Hagan, w recurrent preg 120, [id number], loss, first [place], [place] trimester8 weeks [place], tel:[phone] gestation of [phone] , [place]. tel: [phone] Family History Family Member Diagnosis Age At [...] type Covered libertarian ID Authorization(s) [employer] CI [id number] [employer] CI [id number] Social History Type Description Quantity Date Captured Alcohol Use Details No Caffeine Use Details Unknown Tobacco Use Status Unknown Smoking Status Never smoker Vital Signs Date / Height Weight BMI Pulse Blood Temperature Respiratory Body Head BMI Time: Rate Pressure Rate Surface Circumference percentile Area 227.50 39.0 -2017 lbs 5 9:47 kg/m AM eter (2) 227.50 39.0 135/82 -2017 lbs 5 mm[Hg] 9:49 kg/m AM eter (2) 38.8 -2017 7 9:40 kg/m AM eter (2) Chief Complaint And Reason For Visit Unknown Chief Complaint And Reason For Visit Reason For Referral Reason For Referral Unknown Plan Of Care Date Type Action Status Appointment Sade Laguerre BOOKED Future Order: Radiology Order Complete OB Ultrasound > 14 Ordered Weeks ([id number]) Future Order: Radiology Order Ultrasound OB Follow-up ([id number]) Ordered Date Type Problem Goal Intervention Status [...] ob handbook Zika virus assessment & precautions Mar-27-2017 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
--- OUTSIDE RECORDS SUMMARY | 2017-08-08 17:05 | External Medical Summary | Continuity of Care Document ---
:1995 Author Organization [facility] Address [address] [place], [place] [phone] Phone Care Team Providers Name Role Phone [...] Streptococcus B 35 weeks gestation of - Supervision of other [...] third trimester 37 weeks gestation of - Oth related conditions, - third trimester 32 weeks gestation of - Asthma Active Procedures Procedure Date Immuniz admnin, 1 vac, sngl/combo 19 Yrs + Flu Vaccine - Quadrivalent OB Visit No Charge Results Test Name Date and Time Measure Units Reference Range Abnormal Flag Comments Panel Description: CULTURE, GROUP B STREP WITH SUSCEPTIBILITY CULTURE, GROUP B SEE NOTE CULTURE, GROUP B STREP WITH STREP WITH 16:38:00 SUSCEPTIBILITY MICRO NUMBER: SUSCEPTIBILITY [id number] TEST STATUS: FINAL SPECIMEN SOURCE: VAGINAL/ANORECTAL SPECIMEN QUALITY: ADEQUATE RESULT: No group B Streptococcus isolatedREPORT COMMENT:FASTING:UNKNOWNTest performed at [facility] [id number] FILIPE GASTON [id number]: JUAN MANUEL BARRIOS DO,MPH Advance Directives Directive Yes / No Effective Date File Name Unknown Encounters Encounter Practice Location Reason(s) Diagnoses Date Provider Care Team Description For Visit Members Yandel Garza Supervision of [facility] In Womens other high risk 7-201 [facility], pregnancies, 7 700 [address] third [email or web address] Medical 1522, weeks gestation [facility], of Joshua Hagan, 120, [id number], [place], [place], tel:+ [phone] , [place]. tel: [phone] Yandel Garza Supervision of Oct-1 [facility] In Womens other high risk 0-201 Malissa. Health LESIA, pregnancies, 7 700 [address] third [email or web address] Medical 1522, weeks gestation [facility], of Joshua Hagan, 120, [id number], [place], [place], tel:+ [phone] , [place]. tel: [phone] Yandel Garza Supervision of Oct-0 [facility] Referring In Womens other high risk 3-201 Malissa. Provider: Health PA, pregnancies, 7 700 Malissa Mercado PO Box third Medical K, 700 1522, trimesterEncounte [facility], r For , [facility] [address] DENT, Screening For 120, Joshua 120, [id number], Streptococcus B35 [place], [place] weeks gestation [place], FIL[place], tel:+ of [phone]. , [place]. tel: tel: [phone] Yandel Garza Supervision of Sep-1 [facility] In Womens other high risk 8-201 [facility]. [facility], pregnancies, 7 700 PO Box third Medical 1522, trimesterPreg [facility], care for patient Drive, [place], w recurrent preg [id number], loss, third 120, [place] trimesterOth [place], tel: related [place], conditions, third [address], trimesterMaternal [place]. care for excess tel:[phone] growth, [phone] third trimester, unsp Yandel Garza Supervision of Sep-1 [facility] In Womens Ultrasound other high risk 8-201 Malissa. [facility] [place], pregnancies, 7 700 PO Box third Medical 1522, trimesterPreg [facility], care for patient Joshua Hagan, w recurrent preg 120, [id number], loss, third [place], [place] [email or web address] weeks [place], tel:[phone] gestation of [id number] , [place]. tel: [phone] Yandel Garza Oth Sep-1 [facility] In Womens related 1-201 Malissa. [facility] [place], conditions, third 7 700 PO Box weeks Medical 1522, gestation of [facility], Joshua Hagan, 120, [id number], [place], [place], tel:[phone] , [place]. tel: [phone] Yandel Garza Supervision of Aug-3 [facility] Referring In Womens other high risk 1-201 Malissa. Provider: Health [place], pregnancies, 7 700 Malissa Mercado PO Box third Medical K, 700 1522, weeks gestation [facility], of , [facility] [place], 120, Joshua 120, , [place], [place], [place], tel:[phone]. , [place]. tel: tel: [phone] Yandel Garza Supervision of Aug-1 [facility] In Womens other high risk 0-201 Malissa. [facility], pregnancies, 7 700 PO Box second Medical 1522, [email or web address] weeks [facility], gestation of Joshua Hagan, 120, , [place], [place], tel:[phone] , [place]. tel: [phone] Yandel Garza Supervision of J Carlos-1 [facility] In Womens other high risk 3-201 Malissa. [facility], pregnancies, 7 700 PO Box second Medical 1522, [email or web address] weeks [facility], gestation of Joshua Hagan, 120, , [place], [place], tel:[phone] , [place]. tel: [phone] Yandel Garza Supervision of Mir-1 [facility] In Womens other high risk 2-201 Malissa. [facility], pregnancies, 7 700 PO Box second Medical 1522, trimesterPreg [facility], care for patient Joshua Hagan, w recur preg 120, [id number], loss, second [place], [email or web address] weeks [place], tel:[phone] gestation of [phone] [id number] , [place]. tel: [phone] Yandel Garza Supervision of Mir-1 [facility] In Womens Ultrasound other high risk 2-201 Malissa. [facility], pregnancies, 7 700 PO Box second Medical 1522, [facility], care for excess Joshua Hagan, growth, 120, [id number], second tri, [place], [place] unsp19 weeks [place], tel:[phone] gestation of [phone] [id number] , [place]. tel: [phone] Associates [place] Supervision of January-3 [facility] In Womens other high risk 0-201 Malissa. [facility], pregnancies, 7 700 PO Box second Medical 1522, [facility]Maternal [facility], care for excess Joshua Hagan, growth, 120, [id number], second triGreg, [place] unsp17 weeks [place], tel:[phone] gestation of [phone] [id number] , [place]. tel: [phone] Associates [place] Supervision of January-0 [facility] In Womens other high risk 3-201 Malissa. [facility], pregnancies, 7 700 PO Box first [email or web address] Medical 1522, weeks gestation [facility], of Joshua Hagan, 120, [id number], [place], [place], tel:[phone] , [place]. tel: [phone] Yandel Garza Supervision of Mar-2 [facility] In Womens other high risk 7-201 Malissa. [facility] [place], pregnancies, 7 700 PO Box first Medical 1522, trimesterPreg [facility], care for patient Joshua Hagan, w recurrent preg 120, [id number], loss, first [place], [place] trimester8 weeks [place], tel:[phone] gestation of [phone] [id number] , [place]. tel: [phone] Family History Family Member Diagnosis Age At [...] Provider Payers Payer name Insurance type Covered alliance party ID Authorization(s) Aetna CI [id number] [facility] - [id number] Medicaid Aetna CI [id number] Aetna CI [id number] Social History Type Description Quantity Date Captured Alcohol Use Details No Caffeine Use Details Unknown Tobacco Use Status Unknown Smoking Status Never smoker Vital Signs Date / Height Weight BMI Pulse Blood Temperature Respiratory Body Head BMI Time: Rate Pressure Rate Surface Circumference percentile Area 236.10 40.5 118/75 -2017 lbs 2 mm[Hg] 6:58 kg/m PM eter (2) 236.10 40.5 -2016 lbs 2 4:20 kg/m PM eter (2) Chief Complaint And Reason For Visit Unknown Chief Complaint And Reason For Visit Reason For Referral Reason For Referral Unknown Plan Of Care Date Type Action Status Appointment Sade Laguerre BOOKED Future Order: Radiology Order Complete OB Ultrasound > 14 Ordered Weeks ([id number]) Future Order: Radiology Order Ultrasound OB Follow-up ([id number]) Ordered Date Type Problem Goal Intervention Status [...]
--- OUTSIDE RECORDS SUMMARY | 2017-08-08 17:07 | External Medical Summary | Continuity of Care Document ---
:1995 Author Organization [facility] Allergies Active Description Code Type Severity Reaction Onset Reported/ Identified Relationship Clinical to Patient Status Yes amoxicillin 3675 1 N/A Hives Medications Medication Packaging Start Date Stop Date Route Dosage Sig Capsule 01/02/2017 01/13/2017 PROMETRIUM insert 1 capsule by vaginal route every bedtime until 10 -12 weeks GA Problems Date Dx Attending Type Code Diagnosis Diagnosed By Coded 03/13/2017 Malissa Mercado O09.892 Supervision of other high risk pregnancies, second trimester 03/13/2017 Malissa Mercado O36.62x0 Maternal care for excess growth, second tri, unsp 03/13/2017 Malissa Mercado.19 19 weeks gestation of 06/19/2017 Malissa Mercado O09.893 Supervision of other high risk pregnancies, third trimester 06/19/2017 Malissa Mercado O26.23 Preg care for patient w recurrent preg loss, third trimester 06/19/2017 Malissa Mercado.33 33 weeks gestation of 07/11/2017 Malissa Mercado O26.893 Oth related conditions, third trimester 07/11/2017 Malissa Mercado.32 32 weeks gestation of 07/11/2017 Malissa Mercado O26.893 Oth related conditions, third trimester 07/11/2017 Malissa Mercado.32 32 weeks gestation of 07/11/2017 Malissa Mercado O26.893 Oth related conditions, third trimester 07/11/2017 Malissa Mercado.32 32 weeks gestation of 07/11/2017 Malissa Mercado O09.893 Supervision of other high risk pregnancies, third trimester 07/11/2017 Malissa Mercado O26.23 Preg care for patient w recurrent preg loss, third trimester 07/11/2017 Malissa Mercado Z3A.33 33 weeks gestation of 07/11/2017 Malissa Mercado O09.893 Supervision of other high risk pregnancies, third trimester 07/11/2017 Malissa Mercado O26.23 Preg care for patient w recurrent preg loss, third trimester 07/11/2017 Malissa Mercado Z3A.33 33 weeks gestation of 07/11/2017 Malissa Mercado O09.893 Supervision of other high risk pregnancies, third trimester 07/11/2017 Malissa Mercado Z36.85 Encounter For Screening For Streptococcus B 07/11/2017 Malissa Mercado Z3A.35 35 weeks gestation of 07/11/2017 Malissa Mercado O09.893 Supervision of other high risk pregnancies, third trimester 07/11/2017 Malissa Mercado Z36.85 Encounter For Screening For Streptococcus B 07/11/2017 Malissa Mercado Z3A.35 35 weeks gestation of 07/11/2017 Malissa Mercado O09.893 Supervision of other high risk pregnancies, third trimester 07/11/2017 Malissa Mercado Z36.85 Encounter For Screening For Streptococcus B 07/11/2017 Malissa Mercado Z3A.35 35 weeks gestation of Procedures Code Description Performed By Performed On 03/13/2017 11768 Ultrasnd exam of preg uterus, compl OB 06/12/2017 20374 Visit No Charge Cult, 06/12/2017 65481 bactr, cheng colonycnt, urine Cult, 06/12/2017 56476 bactr, ident isolate, urine 06/19/2017 22276 Ultrasnd preg uterus, flwup/repeat OB 07/04/2017 86988 Visit No Charge 07/04/2017 34084 Immuniz admnin, 1 vac, sngl/combo Flu 07/04/2017 00727 Vaccine - Quadrivalent Results Encounters ACCT No. Visit Discharge Status Pt. Type Provider Facility Loc./Unit Complaint Date/Time [id number] 07/11/2017 07/11/2017 CLS Outpatient [facility], 16:00:00 23:59:59 Malissa Mcfarland [id number] 07/04/2017 07/04/2017 CLS Outpatient [facility], 16:00:00 23:59:59 Malissa Mcfarland [id number] 06/19/2017 06/19/2017 CLS Outpatient [facility], 15:45:00 23:59:59 Chepe Bejarano [id number] 06/19/2017 06/19/2017 CLS Outpatient [facility], 15:15:00 23:59:59 Malissa Mcfarland [id number] 06/12/2017 06/12/2017 CLS Outpatient [facility], 15:35:00 23:59:59 Malissa Mcfarland [id number] 06/01/2017 06/01/2017 CLS Outpatient [facility], 10:00:00 23:59:59 Malissa Mcfarland [id number] 05/15/2017 05/15/2017 CLS Outpatient [facility], 13:20:00 23:59:59 Malissa Mcfarland [id number] 05/11/2017 05/11/2017 CLS Outpatient [facility], 10:35:00 23:59:59 Malissa Mcfarland [id number] 04/13/2017 04/13/2017 CLS Outpatient [facility], 11:00:00 23:59:59 Malissa Mcfarland [id number] 03/13/2017 03/13/2017 CLS Outpatient [facility], 10:45:00 23:59:59 Malissa Mcfarland [id number] 03/13/2017 03/13/2017 CLS Outpatient [facility], 10:15:00 23:59:59 Malissa Mcfarland [id number] 02/28/2017 02/28/2017 CLS Outpatient [facility], 15:00:00 23:59:59 Malissa Mcfarland [id number] 2017 2017 CLS Outpatient [facility], 10:18:00 23:59:59 Malissa Mcfarland [id number] 02/01/2017 02/01/2017 CLS Outpatient [facility], 15:55:00 23:59:59 Malissa Mcfarland [id number] 01/02/2017 01/02/2017 CLS Outpatient [facility], 15:38:00 23:59:59 Malissa Mcfarland [id number] 12/26/2016 12/26/2016 CLS Outpatient [facility], 13:30:00 23:59:59 Malissa Mcfarland [id number] 07/25/2017 Document 16:30:00 Registration
[2017-08-08 17:10] VITALS: BMI 41.2
[2017-08-08] MEDS ORDERED: DINOPROSTONE 10 MG VAGINAL INSERT VG ONE (17:53)
[2017-08-08] MEDS ORDERED: TERBUTALINE 1 MG/ML VIAL SQ PRN (17:53)
[2017-08-09] MEDS ORDERED: OXYTOCIN DRIP 30 UNIT/500 ML ML IV PRN (05:00)
[2017-08-09] MEDS: LR 1,000 ML IV PRN ×4 (05:16→23:44)
[2017-08-09] MEDS: D5LR 1,000 ML IV PRN ×2 (05:17→14:53)
--- NOTE | 2017-08-09 10:45 | Anesthesia Preoperative Report ---
Anesthesia Epidural/Spinal Rec - Date and Time Date: 08/09/17 Preoperative Diagnosis: term induction Procedure: Labor Epidural Plan: Epidural - Vital Signs Vital Signs: Temperature 98.9 F 08/09/17 03:51 Pulse Rate 81 08/09/17 03:51 Respiratory Rate 16 08/09/17 03:51 Blood Pressure 130/72 08/09/17 03:51 Pulse Oximetry 95 08/09/17 04:43 /Para: P:0 - Medictaions & Allergies Inpatient Medications: Current Medications Acetaminophen (Tylenol) 500 - 1,000 mg PO Q4H PRN PRN Reason: Pain Hydrocodone Bitart/Acetaminophen ([place] 5/325) 1 - 2 tab PO Q4H PRN PRN Reason: Pain Al Hydroxide/Mg Hydroxide (Maalox Plus) 30 ml PO Q3H PRN PRN Reason: Indigestion Calcium Carbonate (Tums) 500 - 1,000 mg PO Q2H PRN PRN Reason: Indigestion Carboprost Tromethamine (Hemabate) 250 mcg IM O PRN PRN Reason: .Downtime Diphenhydramine HCl (Benadryl) 50 mg PO HS PRN PRN Reason: Sleep Lactated Ringer's (Lactated Ringers) 1,000 mls @ 999 mls/hr IV .Q1H1M PRN Last Admin: 08/09/17 09:52 Dose: 999 mls/hr Dextrose/Lactated Ringer's (Dextrose 5%-Lactated Ringers) 1,000 mls @ 125 mls/ hr IV .Q8H PRN PRN Reason: Labor Last Admin: 08/09/17 05:17 Dose: 125 mls/hr Oxytocin (Pitocin Drip) 30 unit in 500 mls @ 2 mls/hr IV .Q24H PRN; Protocol PRN Reason: Induction/Augmentation Last Admin: 08/09/17 05:18 Dose: 2 mls/hr Lidocaine HCl (Xylocaine-Mpf 1% Vial) 0.2 mg ID O PRN PRN Reason: IV Start Methylergonovine Maleate (Methergine) 0.2 mg IM O PRN Misoprostol (Cytotec) 800 mcg AL ONCE PRN Sodium Chloride (Iv Flush) 10 - 80 ml IV PRN PRN PRN Reason: Flushing Last Admin: 08/09/17 05:18 Dose: 10 ml Terbutaline Sulfate (Brethine) 0.25 mg SQ PRN PRN Zolpidem Tartrate (Ambien) 5 mg PO O PRN PRN Reason: Insomnia Allergies/Adverse Reactions: Allergies Allergy/AdvReac Type Severity Reaction Status Date / Time amoxicillin Allergy Unknown Verified 05/02/16 12:16 - Medical History Respiratory: DENIES: Asthma, Bronchitis, Chronic Obstructive Pulmonary Disease (COPD), Dyspnea, Orthopnea, Pulmonary Embolism, Pneumonia, Upper Respiratory Infection, Pulmonary Edema, Sleep Apnea, Tuberculosis, Other Cardiovascular: DENIES: Abnormal EKG, Angina, Arrhythmia, Congestive Heart Failure, Coronary Artery Disease, Heart Murmur, Hypertension, Hypotension, High Cholesterol, Myocardial Infarction, Rheumatic Fever, Valvular Heart Disease, Other Gastrointestional: DENIES: Obstructive Bowel, Hepatitis, Cirrhosis, Nausea or Vomiting Present, Gastroesophageal Reflux Disease, Gastrointestinal Bleeding, Hiatal Hernia, Ulcer , Morbid Obesity, Other Neuro/Musculoskeletal: Denies: HX.MS.OSAR, Back Problems, Cerebrovascular Accident, Depression, Headaches, Loss of Consciousness, Muscle Weakness, Neuromuscular Disorder, Paralysis, Paresthesia, Syncope, Seizures, Other Renal/Endocrine: DENIES: Diabetes Mellitus Type 1, Diabetes Mellitus Type 2, Renal Failure, Dialysis, Thyroid Disease, Weight Loss, Weight Gain, Other Other History: Reports: Now DENIES: Anesthesia Reactions, Blood Transfusions, Chemotherapy, Cancer, Hemophilia, Malignant Hyperthermia, Sickle Cell Disease, Other - Surgical History Anesthesia Reactions: None Hx Family Anesthesia Reaction: No History of Motion Sickness: No - Social History Smoking Status: Never smoker Second Hand Exposure: No Substance Use Type: does not use Alcohol Intake: never Alcohol Intake Frequency: does not drink Hx Chewing Tobacco Use: No - Pertinent Findings Lab Data: CBC and BMP 08/08/17 16:44 - Physical Exam Respiratory Exam: lungs clear, bilateral breath sounds equal Cardiovascular Exam: regular rate and rhythm, no murmur - Airway Assessment Mallampati Score: I TMD: 3 Fingerbreadths Neck Extension: good Overall Assessment: no airway concerns - ASA ASA Score: 2 - Discussion Discussion: Discussed risks/options/alternatives of anesthesia and questions answered. Patient consents. Nursing pain assessment noted. Attestation Statement: Prior to the delivery of any anesthetic medication, I examined the patient, developed the plan, obtained the patient's consent and discussed the risk and benefits of the procedure with the patient/guardian.
[2017-08-09] MEDS ORDERED: BUTORPHANOL 2 MG/ML INJECTION IVP PRN (13:15)
[2017-08-09] MEDS ORDERED: NALOXONE 0.4 MG/ML INJECTION IVP PRN (14:57)
[2017-08-09] MEDS ORDERED: ROPIVACAINE 1% 10MG/ML INJ 200 MG, SUFentanil 50 MCG in NS 100 ML EPI PRN (14:57)
[2017-08-09] MEDS ORDERED: ONDANSETRON 4 MG/2 ML INJECTION IVP PRN (14:57)
[2017-08-09] MEDS ORDERED: DiphenhydrAMINE 50 MG/ML INJECTION IVP PRN (14:57)
[2017-08-10] MEDS ORDERED: CEFAZOLIN PREMIX (MC ONLY) 2 GM/50 ML BAG IV ONE ×2 (00:14→06:23)
[2017-08-10] MEDS ORDERED: FAMOTIDINE PB 20 MG/50 ML BAG IV ONE (00:21)
[2017-08-10] MEDS ORDERED: CITRIC ACID/SODIUM CITRATE 30ml PO ONE (00:21)
[2017-08-10] MEDS ORDERED: LIDOCAINE 2%/EPI 1:200,000 20ml SDV PF ONE (00:49)
[2017-08-10] MEDS ORDERED: FentaNYL 100 MCG/2 ML INJECTION ONE ×2 (00:50→02:00)
[2017-08-10] MEDS ORDERED: MORPHINE SULFATE PF 5mg/10ml INJ (Duramorph) ONE (00:51)
[2017-08-10] MEDS: CLINDAMYCIN PB 900 MG/50 ML BAG IV SCH ×3 (01:07→16:57)
[2017-08-10] MEDS ORDERED: GENTAMICIN PB 120 MG/100 ML BAG IV ONE (01:23)
[2017-08-10] MEDS ORDERED: TRANEXAMIC ACID 1,000 MG in NS 100 ML IV ONE (01:23)
[2017-08-10] MEDS ORDERED: NALOXONE 2 MG/2 ML INJECTION PFS IVP PRN (01:37)
[2017-08-10] MEDS ORDERED: ONDANSETRON 4 MG/2 ML INJECTION IVP PRN (01:37)
[2017-08-10] MEDS ORDERED: METOCLOPRAMIDE 10mg/2ml INJECTION IVP PRN (01:37)
[2017-08-10] MEDS ORDERED: NALBUPHINE 10 MG/ML INJECTION IVP PRN (01:37)
--- NOTE | 2017-08-10 01:37 | Anesthesia Preoperative Report ---
Anesthesia Preoperative Record - Date and Time Date: 08/10/17 Preoperative Diagnosis: /Induction failure to progress Proposed Procedure: emergency csection NPO Since Date: 08/09/17 NPO Since Time: 06:00 Allergies/Adverse Reactions: Allergies Allergy/AdvReac Type Severity Reaction Status Date / Time amoxicillin Allergy Unknown Verified 05/02/16 12:16 - Vital Signs Vital Signs: Temperature 98.9 F 08/09/17 03:51 Pulse Rate 81 08/09/17 03:51 Respiratory Rate 16 08/09/17 03:51 Blood Pressure 130/72 08/09/17 03:51 Pulse Oximetry 95 08/09/17 04:43 Height and Weight: Height 1.63 m Weight 109 kg Body Mass Index 41.2 - Medications Inpatient Medications: Current Medications Acetaminophen (Tylenol) 500 - 1,000 mg PO Q4H PRN PRN Reason: Pain Last Admin: 08/09/17 16:57 Dose: 1,000 mg Hydrocodone Bitart/Acetaminophen ([place] 5/325) 1 - 2 tab PO Q4H PRN PRN Reason: Pain Al Hydroxide/Mg Hydroxide (Maalox Plus) 30 ml PO Q3H PRN PRN Reason: Indigestion Butorphanol Tartrate (Stadol Inj) 1 mg IVP Q4H PRN Last Admin: 08/09/17 13:18 Dose: 1 mg Calcium Carbonate (Tums) 500 - 1,000 mg PO Q2H PRN PRN Reason: Indigestion Carboprost Tromethamine (Hemabate) 250 mcg IM O PRN PRN Reason: .Downtime Citric Acid/Sodium Citrate (Oracit) 30 ml PO ONCE ONE Stop: 08/10/17 00:22 Last Admin: 08/10/17 00:27 Dose: 30 ml Diphenhydramine HCl (Benadryl) 50 mg PO HS PRN PRN Reason: Sleep Diphenhydramine HCl (Benadryl) 25 - 50 mg IVP Q3H PRN PRN Reason: Itching Cefazolin Sodium/Dextrose (Kefzol Premix (Mc Only)) 2 gm in 50 mls @ 100 mls/ hr IV Q6HR ONE Stop: 08/10/17 00:43 Last Admin: 08/10/17 00:18 Dose: 100 mls/hr Famotidine/Sodium Chloride (Pepcid Premix) 20 mg in 50 mls @ 100 mls/hr IV O ONE Stop: 08/10/17 00:50 Last Admin: 08/10/17 00:27 Dose: 100 mls/hr Gentamicin Sulfate/Sodium Chloride (Garamycin Premix) 120 mg in 100 mls @ 200 mls/hr IV PREOP ONE Stop: 08/10/17 01:52 Clindamycin Phosphate (Cleocin Premix) 900 mg in 50 mls @ 50 mls/hr IV Q8H GUERLINE Tranexamic Acid 1,000 mg/ (Sodium Chloride) 110 mls @ 660 mls/hr IV INTRAOP ONE Stop: 08/10/17 01:32 Lactated Ringer's (Lactated Ringers) 1,000 mls @ 999 mls/hr IV .Q1H1M PRN Last Admin: 08/09/17 23:44 Dose: 999 mls/hr Dextrose/Lactated Ringer's (Dextrose 5%-Lactated Ringers) 1,000 mls @ 125 mls/ hr IV .Q8H PRN PRN Reason: Labor Last Admin: 08/09/17 14:53 Dose: 125 mls/hr Oxytocin (Pitocin Drip) 30 unit in 500 mls @ 2 mls/hr IV .Q24H PRN; Protocol PRN Reason: Induction/Augmentation Last Admin: 08/09/17 05:18 Dose: 2 mls/hr Ropivacaine 200 mg/ Sufentanil Citrate 50 mcg/ Sodium Chloride 121 mls @ 0 mls/ hr EPI PRN PRN; As Directed PRN Reason: Protocol Lidocaine HCl (Xylocaine-Mpf 1% Vial) 0.2 mg ID O PRN PRN Reason: IV Start Methylergonovine Maleate (Methergine) 0.2 mg IM O PRN Misoprostol (Cytotec) 800 mcg AR ONCE PRN Naloxone HCl (Narcan) 0.1 mg IVP Q2M PRN PRN Reason: Respiratory distress Ondansetron HCl (Zofran) 4 mg IVP Q6H PRN PRN Reason: Nausea &/or vomiting Sodium Chloride (Iv Flush) 10 - 80 ml IV PRN PRN PRN Reason: Flushing Last Admin: 08/09/17 05:18 Dose: 10 ml Terbutaline Sulfate (Brethine) 0.25 mg SQ PRN PRN Zolpidem Tartrate (Ambien) 5 mg PO O PRN PRN Reason: Insomnia - Medical History Respiratory: DENIES: Asthma, Bronchitis, Chronic Obstructive Pulmonary Disease (COPD), Dyspnea, Orthopnea, Pulmonary Embolism, Pneumonia, Upper Respiratory Infection, Pulmonary Edema, Sleep Apnea, Tuberculosis, Other Cardiovascular: DENIES: Abnormal EKG, Angina, Arrhythmia, Congestive Heart Failure, Coronary Artery Disease, Heart Murmur, Hypertension, Hypotension, High Cholesterol, Myocardial Infarction, Rheumatic Fever, Valvular Heart Disease, Other Gastrointestional: DENIES: Obstructive Bowel, Hepatitis, Cirrhosis, Nausea or Vomiting Present, Gastroesophageal Reflux Disease, Gastrointestinal Bleeding, Hiatal Hernia, Ulcer , Morbid Obesity, Other Neuro/Musculoskeletal: Denies: HX.MS.OSAR, Back Problems, Cerebrovascular Accident, Depression, Headaches, Loss of Consciousness, Muscle Weakness, Neuromuscular Disorder, Paralysis, Paresthesia, Syncope, Seizures, Other Renal/Endocrine: DENIES: Diabetes Mellitus Type 1, Diabetes Mellitus Type 2, Renal Failure, Dialysis, Thyroid Disease, Weight Loss, Weight Gain, Other Other History: Reports: Now DENIES: Anesthesia Reactions, Blood Transfusions, Chemotherapy, Cancer, Hemophilia, Malignant Hyperthermia, Sickle Cell Disease, Other - Surgical History HEENT Surgeries: Reports: Tonsillectomy Surgery/Treatment: DENIES: Dialysis Anesthesia Reactions: None Hx Family Anesthesia Reaction: No History of Motion Sickness: No - Social History Smoking Status: Never smoker Hx Chewing Tobacco Use: No Second Hand Exposure: No Substance Use Type: does not use Alcohol Intake: never Alcohol Intake Frequency: does not drink - Pertinent Findings Laboratory: CBC and BMP 08/08/17 16:44 08/09/17 12:18 BMP 08/09/17 12:18 Sodium 139 Potassium 4.2 Chloride 106 Carbon Dioxide 25 BUN 7.0 Creatinine 0.7 Glucose 102 Calcium 9.3 Liver Function 08/09/17 Range/Units 12:18 Total Bilirubin 0.30 (0.20-1.30) MG/DL AST 20 (14-36) U/L ALT 43 (9-52) U/L Alkaline Phosphatase 157 H (38-126) U/L Albumin 3.3 L (3.5-5.0) G/DL - Physical Exam Respiratory Exam: Present: lungs clear, bilateral breath sounds equal Cardiovascular Exam: Present: regular rate and rhythm, no murmur - Airway Assessment Mallampati Score: I TMD: 3 Fingerbreadths Neck Extension: good Overall Assessment: no airway concerns, may be difficult intubation - ASA ASA Score: 3 - Plan Regional/Trunk Block: Epidural (labor converted to surgical ) - Discussion Discussion: Discussed risks/options/alternatives of anesthesia and questions answered. Patient consents. Nursing pain assessment noted. Attestation Statement: Prior to the delivery of any anesthetic medication, I examined the patient, developed the plan, obtained the patient's consent and discussed the risk and benefits of the procedure with the patient/guardian.
[2017-08-10] MEDS ORDERED: OXYTOCIN BOLUS BAG 30 UNIT/500 ML ML IV SCH (02:45)
[2017-08-10] MEDS: D5LR 1,000 ML IV PRN (03:40)
[2017-08-10] MEDS ORDERED: HYDROCORTISONE 2.5% CREAM 30gm RECTALLY PRN (03:43)
[2017-08-10] MEDS ORDERED: CALCIUM CARBONATE Chewable 500mg TABLET PO PRN (03:43)
[2017-08-10] MEDS ORDERED: DiphenhydrAMINE 25 MG CAPSULE PO PRN (03:43)
[2017-08-10] MEDS ORDERED: SIMETHICONE 80 MG CHEWABLE TABLET PO PRN (03:43)
[2017-08-10] MEDS ORDERED: ACETAMINOPHEN 500 MG TABLET PO PRN (03:43)
[2017-08-10] MEDS ORDERED: OXYTOCIN DRIP 30 UNIT/500 ML ML IV SCH (03:43)
[2017-08-10] MEDS ORDERED: SALINE FLUSH 10ml SYRINGE IV PRN (03:43)
[2017-08-10] MEDS: HYDROCODONE/APAP 5mg/325mg TABLET PO PRN ×2 (04:04→21:02)
[2017-08-10] MEDS: IBUPROFEN 800 MG TABLET PO PRN ×3 (04:04→21:02)
[2017-08-10] MEDS: D5LR 1,000 ML IV SCH (04:13)
[2017-08-10] MEDS ORDERED: CEFAZOLIN PREMIX (MC ONLY) 2 GM/50 ML BAG IV SCH ×2 (06:25→09:00)
[2017-08-10] MEDS ORDERED: GENTAMICIN - PHARMACY CONSULT MC ONE ×2 (07:54→11:45)
--- NOTE | 2017-08-10 08:09 | OB/GYN Progress Note ---
OB-PP Progress Note - General PPD0 Maternal Group B Strep: Negative Maternal blood type: O+ Maternal Rubella Status: Immune - Subjective Date: 08/10/17 Lochia: Minimal Pain: controlled Voiding: horowitz still in place Nausea or Vomiting Present: No Subjective Comments: Baby is in SCN. - Objective Vital Signs: Last Vital Signs Temp 98.4 F 08/10/17 07:13 Pulse 85 08/10/17 07:13 Resp 18 08/10/17 07:13 BP 110/78 08/10/17 07:13 Pulse Ox 97 08/10/17 07:13 Urine Output: good General: alert and oriented Abdomen: soft, non-distended Incision: dressed (Wound vac in place) Extremities: non-tender Laboratory: Laboratory Results - last 24 hr 08/09/17 12:18 Turbidity < 20 Sodium 139 Potassium 4.2 Chloride 106 Carbon Dioxide 25 Anion Gap 8 BUN 7.0 Creatinine 0.7 GFR Calculation 104 BUN/Creatinine Ratio 10 Glucose 102 Calculated Osmolality 266 Calcium 9.3 Total Bilirubin 0.30 Icterus Index < 2 AST 20 ALT 43 Alkaline Phosphatase 157 H Total Protein 6.5 Albumin 3.3 L Globulin 3.2 Albumin/Globulin Ratio 1.0 L Specimen Hemolysis < 15 - Assessment Assessment: Primary C/S, Chorioamnionitis - Plan Plan: routine care, antibiotics (Continue Abx for 24 hours. )
[2017-08-10] MEDS: GENTAMICIN PB 120 MG/100 ML BAG IV SCH ×2 (08:52→15:49)
[2017-08-10] MEDS ORDERED: IRON POLYSACCHARIDE COMPLEX 150 MG CAPSULE PO SCH (09:00)
[2017-08-10] MEDS: SIMETHICONE 80 MG CHEWABLE TABLET PO SCH ×3 (09:40→21:02)
[2017-08-10] MEDS: DOCUSATE CALCIUM 240 MG CAPSULE PO SCH (09:42)
--- NOTE | 2017-08-10 13:26 | Operative Note ---
DATE OF OPERATION 08/10/2017 PREOPERATIVE DIAGNOSIS 1. 22-year-old 4, para 0 at 40 weeks 4 days gestational age. 2. Arrest of dilation and descent. 3. Chorioamnionitis. POSTOPERATIVE DIAGNOSIS 1. 22-year-old 4, para 0 at 40 weeks 4 days gestational age. 2. Arrest of dilation and descent. 3. Chorioamnionitis. PROCEDURE Primary low transverse section. SURGEON Malissa Mercado MD FOLLOW UP CLERK Janie Benites MD ANESTHESIA Epidural [employer] Mikel Saldana CRNA COMPLICATIONS None EBL 800 mL FINDINGS Viable female , cephalic LOP position, clear fluids, Apgars 8/8, weight 3008 grams, name "Ervin". Normal-appearing uterus, tubes and ovaries. INDICATIONS Sade was brought in the evening of 08/08/2017 for cervical ripening. I was unable to place a Shoemaker bulb, so a Cervidil was placed instead. The next morning she was started on Pitocin. Her cervix was still closed. In the afternoon, she ruptured her membranes spontaneously. There was one report of light meconium and otherwise clear fluids were seen. She received an epidural. When she was comfortable I checked her and she was 3 cm and 70% effaced. An IUPC was placed to help titrate the Pitocin. All day we were going up and down on the Pitocin based on her contraction pattern. She never made it past 3 cm. Her temperature maycol to 101 and baby became tachycardic. She was started on antibiotics and consented for a section. DESCRIPTION OF PROCEDURE The patient was taken to the operating room where her epidural was brought up to adequate surgical levels. She was prepared and draped in the normal sterile fashion. She already had a Shoemaker catheter in place. Her IUPC was pulled prior to the draping. A Pfannenstiel skin incision was made and carried down to the fascia. The fascia was incised in the midline and extended laterally with the Mares scissors. The fascia was elevated and the underlying rectus muscles were dissected off. The peritoneum was entered with a combination of sharp and blunt dissection. This was extended superiorly and inferiorly with good visualization of the bladder. The bladder blade was inserted. A bladder flap was created sharply and the bladder blade was reinserted. The lower uterine segment was incised in a transverse fashion layer by layer with a scalpel and bluntly extended. The infant's head was delivered atraumatically. The nose and mouth were suctioned. The cord was clamped and cut. The was handed to Dr. Bragg who was asked to attend due to the maternal fever. The placenta delivered spontaneously. The uterus was exteriorized and cleared of all clots and debris. The uterine incision was closed with running locked 0 Monocryl. A [id number] of 2-0 chromic was placed on the right edge of the incision for hemostasis. The uterus was returned to the abdomen. The gutters were cleared of all clots and debris. The uterine incision was inspected one final time and still noted to be hemostatic. The peritoneum was closed with running 2-0 Vicryl. Hemostasis was obtained in the rectus muscles with the cautery. The fascia was closed with running 0 Vicryl. Hemostasis was obtained in the subcutaneous tissue with cautery. Kathrine's fascia was closed with running 2-0 chromic. The skin was closed with 4-0 Vicryl in a subcuticular manner. A Prevena wound VAC was placed due to the patient's BMI of 41. Her Kefzol, gent and Clindamycin will be continued for 24 hours. Baby was taken to [facility] for respiratory distress. RADHA
[2017-08-10] MEDS: IRON POLYSACCHARIDE COMPLEX 150 MG CAPSULE PO SCH (14:21)
--- NOTE | 2017-08-10 14:22 | Pharmacy Consult-Antibiotics ---
Pharmacy Consult-Gentamicin - Laboratory Information Gentamicin WBC 19.1 T/MM3 (4.5-11.0) H 08/10/17 07:59 BUN 7.0 MG/DL (7-17) 08/09/17 12:18 Creatinine 0.7 MG/DL (0.7-1.2) 08/09/17 12:18 - Consult Information GENTAMICIN CONSULT: Current Renal Fx: SCr = 0.7mg/dl. Will give Gentamicin 120MG IVPB Q8H. Will continue to monitor and make adjustments accordingly. Thank you.
[2017-08-10] MEDS: CEFAZOLIN PREMIX (MC ONLY) 2 GM/50 ML BAG IV SCH ×2 (14:56→23:38)
--- NOTE | 2017-08-10 19:20 | Anesthesia Postoperative Note ---
- Date and Time Date: 08/10/17 Time: 15:51 - Status Patient Participated in Evaluation: Patient Participated in Person Vital Signs: Temperature 98.4 F 08/10/17 14:05 Pulse Rate 76 08/10/17 14:05 Respiratory Rate 16 08/10/17 14:05 Blood Pressure 99/51 08/10/17 14:05 Pulse Oximetry 97 08/10/17 14:05 Respiratory Function: Airway Patent Cardiovascular Function: Regular Pulse EKG: Sinus Rhythm Mental Status: Alert and Oriented Pain Intensity: 3 Hydration: Taking PO Fluids Complications During Recover: None Apparent - Follow-Up Instructions Instructions: Per Surgeon
[2017-08-11] MEDS: SIMETHICONE 80 MG CHEWABLE TABLET PO SCH ×5 (00:24→23:48)
[2017-08-11] MEDS: D5LR 1,000 ML IV SCH (00:25)
[2017-08-11] MEDS: CEFAZOLIN PREMIX (MC ONLY) 2 GM/50 ML BAG IV SCH (00:26)
[2017-08-11] MEDS: HYDROCODONE/APAP 5mg/325mg TABLET PO PRN ×4 (06:08→23:48)
[2017-08-11] MEDS: DOCUSATE CALCIUM 240 MG CAPSULE PO SCH (12:39)
[2017-08-11] MEDS: IRON POLYSACCHARIDE COMPLEX 150 MG CAPSULE PO SCH (12:39)
[2017-08-11] MEDS: IBUPROFEN 800 MG TABLET PO PRN (18:09)
[2017-08-12 05:51] VITALS: O2SAT 97
[2017-08-12] MEDS: HYDROCODONE/APAP 5mg/325mg TABLET PO PRN ×2 (07:02→14:20)
[2017-08-12] MEDS: IBUPROFEN 800 MG TABLET PO PRN ×2 (07:03→15:33)
--- NOTE | 2017-08-12 08:46 | OB/GYN Progress Note ---
OB-PP Progress Note - General PPD2 Maternal Group B Strep: Negative Maternal blood type: O+ Maternal Rubella Status: Immune - Subjective Date: 08/12/17 Lochia: Minimal Pain: controlled Voiding: voiding - Objective Vital Signs: Last Vital Signs Temp 99.3 F 08/12/17 07:00 Pulse 79 08/12/17 07:00 Resp 20 08/12/17 07:00 BP 118/72 08/12/17 07:00 Pulse Ox 97 08/12/17 07:00 General: alert and oriented Abdomen: fundus firm, non-tender, soft, non-distended Extremities: non-tender - Assessment Assessment: Primary C/S, Chorioamnionitis (Resolved) - Plan Plan: routine care, discharge home, continue PNV
[2017-08-12] MEDS: IRON POLYSACCHARIDE COMPLEX 150 MG CAPSULE PO SCH (09:42)
[2017-08-12] MEDS: DOCUSATE CALCIUM 240 MG CAPSULE PO SCH (09:42)
[2017-08-12] MEDS: SIMETHICONE 80 MG CHEWABLE TABLET PO SCH ×2 (09:42→14:20)
[2017-08-12 16:28] VITALS: BP 132/78; PULSE 88; RESP 16; TEMP 98.1
== END 2017-08-12 16:29 | disposition home or self-care (01) | DRG 765 ==
LOC: MC 15:55
PROVIDERS: ADMIT Obstetrics & Gynecology; ATTEND Obstetrics & Gynecology